=== PATIENT | male | born 1950 | race Two or more races ===

== ENCOUNTER 2024-04-01 17:31 | Emergency (ER) | payer OTHER ==
[~2024-04-01] VITALS: Ht 170.2 cm; Wt 81.3 kg
[2024-04-01] MEDS ORDERED: PIPERACILLIN-TAZO 4.5GM 100 ML IV ONE (18:45)
[2024-04-01] MEDS ORDERED: VANCOMYCIN 1GM/200ML 200 ML IV ONE (18:45)
[2024-04-01 19:14] LABS: Basophils # (auto) 0.1 10 ^3/uL (0-0.2); Basophils % (auto) 1.2 % (0.0-2.0); Eosinophils # (auto) 0.3 10 ^3/uL (0-0.8); Eosinophils % (auto) 6.6 % (0.0-7.0); Hematocrit 31.1 % (41.0-53.0); Hemoglobin 10.3 g/dL (13.5-17.5); Lymphocytes # (auto) 1.5 10 ^3/uL (0.4-5.4); Lymphocytes % (auto) 29.4 % (10.0-50.0); Mean Corpuscular Hemoglobin 31.3 pg (28.0-32.0); Mean Corpuscular Hgb Conc. 33.1 g/dL (32.0-36.0); Mean Corpuscular Volume 94.7 fL (80.0-100.0); Monocytes # (auto) 0.4 10 ^3/uL (0-1.3); Monocytes % (auto) 8.7 % (0.0-12.0); Neutrophils # (auto) 2.8 10 ^3/uL (1.6-8.6); Neutrophils % (auto) 54.1 % (37.0-80.0); Platelet Count (auto) 189 10^3/uL (140-450); Red Blood Cells 3.28 10^6/uL (4.5-5.90); Red Cell Distribution Width 13.2 % (11.8-14.3); White Blood Cell 5.1 10^3/uL (4.4-10.8)
[2024-04-01 19:34] LABS: Chloride 111 mmol/L (98-107); Potassium 4.6 mmol/L (3.5-5.1); Sodium 138 mmol/L (136-145)
[2024-04-01 19:35] LABS: Anion Gap 7 (5-15); Calcium 9.5 mg/dL (8.7-10.4); Carbon Dioxide 20 mmol/L (20-30)
[2024-04-01 19:40] LABS: BUN/Creatinine Ratio 27.1 (10.0-20.0); Blood Urea Nitrogen 46 mg/dL (9-23); Glucose 111 mg/dL (74-106)
[2024-04-01] MEDS ORDERED: CLIN-203 PO (20:11)
[2024-04-01] MEDS ORDERED: LEVO500T91 PO (20:11)
[2024-04-01] MEDS ORDERED: ACET-1304 PO (20:11)
[2024-04-02] MEDS: CLINDAMYCIN 900MG IV 50 ML IV ONE (00:50)
[2024-04-02 00:52] VITALS: BP 184/88; PULSE 68; RESP 18; TEMP 98.1; O2SAT 100
[2024-04-02] MEDS: levoFLOXacin 500MG 100 ML IV ONE (00:56)
== END 2024-04-02 01:58 | disposition home or self-care (01) ==
LOC: ER 17:31
DX: S90.411D Abrasion, right great toe, subsequent encounter (principal); B96.89 Other specified bacterial agents as the cause of diseases classified elsewhere; E11.9 Type 2 diabetes mellitus without complications; I10 Essential (primary) hypertension; Z79.899 Other long term (current) drug therapy; Z98.890 Other specified postprocedural states; Z88.8 Allergy status to other drugs, medicaments and biological substances; X58.XXXD Exposure to other specified factors, subsequent encounter
CPT/HCPCS: 36415; 73630; 80048; 82962; 83605; 85025; 96365; 96368; 99284; J1956; J3490